=== PATIENT | male | born 1955 | race Caucasian/White ===

== ENCOUNTER 2018-02-05 13:38 | Inpatient (IN) | payer BC ==
[~2018-02-05] VITALS: Ht 172.7 cm; Wt 90.0 kg
[2018-02-05 13:43] VITALS: BP 130/67; PULSE 118; RESP 18; TEMP 97.8; O2SAT 96
[2018-02-05 14:05] VITALS: BP 130/67; PULSE 116; RESP 18; O2SAT 99
[2018-02-05] MEDS ORDERED: ENBR50IN2 SQ (14:15)
[2018-02-05] MEDS ORDERED: PARO20TA2 PO (14:15)
[2018-02-05] MEDS ORDERED: NAPR500T2 PO (14:15)
[2018-02-05] MEDS ORDERED: RILU1TAB2 PO (14:15)
[2018-02-05] MEDS ORDERED: HYOS1TAB9 PO (14:15)
[2018-02-05] MEDS ORDERED: EDAR30PI (14:15)
[2018-02-05] MEDS ORDERED: METR250T23 PO (14:15)
[2018-02-05] MEDS ORDERED: TRAM50TA PO (14:15)
[2018-02-05] MEDS ORDERED: LISI20TA3 PO (14:15)
[2018-02-05] MEDS ORDERED: GINK60TA10 PO (14:15)
[2018-02-05] MEDS ORDERED: FAMO20TA2 PO (14:15)
[2018-02-05] MEDS ORDERED: ZOLP10TA3 PO (14:15)
[2018-02-05] MEDS ORDERED: CYCL10TA PO (14:15)
[2018-02-05] MEDS ORDERED: VIAG100T PO (14:15)
[2018-02-05] MEDS ORDERED: SODIUM CHLORIDE 0.9% FLUSH 10 ML FLUSH IV FLUSH PRN ×2 (14:30→18:15)
[2018-02-05 14:40] VITALS: O2SAT 99
--- NOTE | 2018-02-05 14:40 | PD ---
HPI Chief Complaint: Abdominal Pain Time Seen by Provider: 13:54 Travel History International Travel<30 days: No Contact w/Intl Traveler<30days: No Traveled to known affect area: No History of Present Illness HPI This patient complains of nausea vomiting abdominal pain. Patient has history of ulcerative colitis and colectomy. He has had at least 10 occasions in the past where he developed ileus/small bowel obstruction. All of these are relieved with bowel rest and NG suction. Has not had to have a operative intervention for any of them. He is vacationing from [place]. 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 Duration is 24 hours. He had a normal bowel movement yesterday. No alleviating factors. Symptoms could be exacerbated by adhesions and pain medications. PFSH Past Medical History Autoimmune Disease: Yes (ALS) Hypertension: Yes Past Surgical History Abdominal Surgery: Yes (colon removal and recontruction, colostomy and reversal ) Social History Alcohol Use: Yes Tobacco Use: No Substance Use: No Allergies-Medications (Allergen,Severity, Reaction): Coded Allergies: No Known Allergies (Unverified , 02/05/18) Reported Meds & Prescriptions Reported Meds & Active Scripts Active Reported Lisinopril-Hctz 20-25 Mg Tab 1 Tab PO DAILY Zolpidem (Zolpidem Tartrate) 10 Mg Tab 10 Mg PO HS PRN Famotidine 20 Mg Tab 20 Mg PO HS Naproxen 500 Mg Tab 500 Mg PO BID Riluzole 50 Mg Tab 50 Mg PO BID Flexeril (Cyclobenzaprine HCl) 10 Mg Tab 10 Mg PO TID Tramadol (Tramadol HCl) 50 Mg Tab 50 Mg PO Q8H PRN Metronidazole 250 Mg Tab 250 Mg PO BID Paroxetine (Paroxetine HCl) 20 Mg Tab 20 Mg PO DAILY Ginkgo Biloba (Ginkgo Biloba [place] Extract) 60 Mg Tablet 120 Mg PO Hyoscyamine (Hyoscyamine Sulfate) 0.125 Mg Tab 0.125 Mg PO QID Viagra (Sildenafil Citrate) 100 Mg Tab 100 Mg PO DAILY PRN Enbrel PF Inj (Etanercept) 50 mg/ml Syr 50 Mg SQ Q7D Radicava (Edaravone) 30 Mg/100 Ml Piggyback Review of Systems General / Constitutional: No: Fever Eyes: No: Visual changes HENT: No: Headaches Cardiovascular: No: Chest Pain or Discomfort Respiratory: No: Shortness of Breath Gastrointestinal: Positive: Nausea, Vomiting, Abdominal Pain Genitourinary: No: Dysuria Musculoskeletal: Positive: Weakness, No: Pain Skin: No Rash Neurologic: Positive: Weakness Psychiatric: No: Depression Endocrine: No: Polydipsia Hematologic/Lymphatic: No: Easy Bruising Physical Exam Narrative GENERAL: Well-nourished, well-developed patient with abdominal pain and nausea. SKIN: Focused skin assessment reveals no rash and nodules. Skin is Warm and dry. HEAD: Atraumatic. Normocephalic. EYES: Pupils equal and round. No scleral icterus. No injection or drainage. ENT: No nasal bleeding or discharge. Mucous membranes pink and moist. NECK: Trachea midline. No JVD. CARDIOVASCULAR: Regular rate and rhythm. No murmur appreciated. RESPIRATORY: No accessory muscle use. Clear to auscultation. Breath sounds equal bilaterally. GASTROINTESTINAL: Abdomen has some tenderness and distention. No rebound or guarding. Diminished bowel sounds . Hepatic and splenic margins not palpable. MUSCULOSKELETAL: No obvious deformities. No clubbing. No cyanosis. No edema. NEUROLOGICAL: Awake and alert. No obvious cranial nerve deficits. Motor grossly within normal limits. Normal speech. PSYCHIATRIC: Appropriate mood and affect; insight and judgment normal. Rectal: Normal tone, no impaction Data Data Last Documented VS Vital Signs Date Time Temp Pulse Resp B/P (MAP) Pulse Ox O2 Delivery O2 Flow Rate FiO2 02/05/18 14:05 18 02/05/18 14:05 116 130/67 (88) 99 Room Air 02/05/18 13:43 97.8 Orders Orders Complete Blood Count With Diff (02/05/18 14:16) Comprehensive Metabolic Panel (02/05/18 14:16) Lipase (02/05/18 14:16) Prothrombin Time / Inr (Pt) (02/05/18 14:16) Act Partial Throm Time (Ptt) (02/05/18 14:16) Ct Abd/Pel W Iv Contrast(Rout) (02/05/18 14:16) Iv Access Insert/Monitor (02/05/18 14:16) Ecg Monitoring (02/05/18 14:16) Oximetry (02/05/18 14:16) Sodium Chloride 0.9% Flush (Ns Flush) (02/05/18 14:30) MDM Medical Decision Making Medical Screen Exam Complete: Yes Emergency Medical Condition: Yes Medical Record Reviewed: Yes Differential Diagnosis Obstruction, ileus, adhesions Narrative Course I have reviewed the patient's electronic medical record. Abdominal pain workup is ordered. He likely has some degree of ileus or obstruction. IV placed and labs sent CT of abdomen and pelvis Nausea medicine given and a dose of pain medicine Satya Pastrana MD Feb 05, 2018 14:40
[2018-02-05 14:59] LABS: AUTOMATED NEUTROPHIL # 11.5 TH/MM3 (1.8-7.7); BASOPHIL % 0.1 % (0.0-2.0); HEMATOCRIT 40.6 % (39.0-51.0); HEMOGLOBIN 12.6 GM/DL (13.0-17.0); LYMPH % 5.5 % (9.0-44.0); LYMPHOCYTE # 0.8 TH/MM3 (1.0-4.8); MEAN CELL VOLUME 73.7 FL (80.0-100.0); MEAN CORPUSCULAR HEMOGLOBIN 22.8 PG (27.0-34.0); MEAN CORPUSCULAR HGB CONC 30.9 % (32.0-36.0); MEAN PLATELET VOLUME 8.4 FL (7.0-11.0); MONO % 15.9 % (0.0-8.0); MONOCYTE # 2.3 TH/MM3 (0-0.9); NEUT % 78.5 % (16.0-70.0); PLATELET COUNT 655 TH/MM3 (150-450); RED BLOOD COUNT 5.52 MIL/MM3 (4.50-5.90); WHITE BLOOD COUNT 14.7 TH/MM3 (4.0-11.0)
[2018-02-05 15:11] LABS: INTERNATIONAL NORMALIZED RATIO 1.2 RATIO; PROTHROMBIN TIME - PATIENT 12.4 SEC (9.8-11.6)
[2018-02-05 15:13] LABS: ALBUMIN 4.1 GM/DL (3.4-5.0); ALT (GPT) 27 U/L (12-78); AST (GOT) 20 U/L (15-37); BICARBONATE 29.5 MEQ/L (21.0-32.0); BLOOD UREA NITROGEN 20 MG/DL (7-18); CALCIUM 9.5 MG/DL (8.5-10.1); CHLORIDE 100 MEQ/L (98-107); CREATININE 1.03 MG/DL (0.60-1.30); GLOMERULAR FILTRATION RATE 73 ML/MIN (>89); GLUCOSE,RANDOM 157 MG/DL (74-106); SODIUM (NA) 138 MEQ/L (136-145)
[2018-02-05 15:15] LABS: ALKALINE PHOSPHATASE 45 U/L (45-117); TOTAL BILIRUBIN ADULT 1.8 MG/DL (0.2-1.0); TOTAL PROTEIN 8.1 GM/DL (6.4-8.2)
[2018-02-05] MEDS ORDERED: ONDANSETRON HCL 4 MG/2 ML VIAL IV ONE (15:30)
[2018-02-05] MEDS ORDERED: MORPHINE SULFATE 4 MG/ML INJ IV PUSH ONE (15:30)
[2018-02-05] MEDS ORDERED: IOHEXOL 350 MG/ML 10 ML VIAL (for RAD DIAG) IVCONTRAST ONE (15:44)
--- NOTE | 2018-02-05 15:51 | RADRPT ---
EXAM DATE/TIME: 02/05/2018 15:28 [facility] COMPARISON: No previous studies available for comparison. INDICATIONS : Left lower quadrant pain. Evaluate for obstruction, history of colectomy. IV CONTRAST: 95 cc Omnipaque 350 (iohexol) IV ORAL CONTRAST: Patient refused oral contrast. RADIATION DOSE: 10.64 CTDIvol (mGy) MEDICAL HISTORY : Hypertension. ALS SURGICAL HISTORY : Colectomy ENCOUNTER: Initial ACUITY: 1 week PAIN SCALE: 4/10 LOCATION: Left lower quadrant TECHNIQUE: Volumetric scanning of the abdomen and pelvis was performed. Using automated exposure control and ad justment of the mA and/or kV according to patient size, radiation dose was kept as low as reasonably achievable to obtain optimal diagnostic quality images. DICOM format image data is available electro nically for review and comparison. FINDINGS: LOWER LUNGS: Mild scarring in the lung bases. LIVER: Homogeneous density without lesion. There is no dilation of the biliary tree. No calcified gallston es. SPLEEN: Normal size without lesion. PANCREAS: Within normal limits. KIDNEYS: Normal in size and shape. There is no mass, stone or hydronephrosis. ADRENAL GLANDS: Within normal limits. VASCULAR: There is no aortic aneurysm. BOWEL/MESENTERY: There is fluid within the distal esophagus. Large amount of fluid in the stomach. Markedly distended fluid-filled small bowel throughout the abdomen. There is contrast in the colon. The left colon has b een resected.. ABDOMINAL WALL: Within normal limits. RETROPERITONEUM: There is no lymphadenopathy. BLADDER: No wall thickening or mass. REPRODUCTIVE: Within normal limits. INGUINAL: There is no lymphadenopathy or hernia. MUSCULOSKELETAL: Right hip arthroplasty. CONCLUSION: Markedly distended stomach and small bowel filled with mostly fluid. Status post left hemicolectomy. Uncertain how much colon is left. No definite evidence of bowel obstruction. Solid organs are unremar kable. Nj Ortiz MD on February 05, 2018 at 15:46 Board Certified Radiologist. This report was verified electronically.
[2018-02-05] MEDS ORDERED: SODIUM CHLOR 0.9% 1000 ML INJ 1,000 ML IV ONE (16:15)
[2018-02-05 16:47] LABS: BANDS 6 % (0-6); BASOPHILS 1 % (0-2); LYMPHOCYTES 8 % (9-44); MONOCYTES 15 % (0-8); NEUTROPHIL # MANUAL DIFF 11.2 TH/MM3 (1.8-7.7); OVALOCYTES 1+ (NORMAL); POLYS (SEG NEUTROPHILS) 70 % (16-70)
[2018-02-05 17:00] VITALS: BP 135/77; PULSE 116; RESP 20; O2SAT 99
[2018-02-05] MEDS ORDERED: LIDOCAINE VISCOUS 2% SOLN 15 ML UDC PO ONE (17:15)
--- NOTE | 2018-02-05 17:32 | HHI.HP ---
HPI Service Family Medicine Primary Care Physician No Primary Care Physician Admission Diagnosis ileus, abd pain Diagnoses: International Travel<30 Days: No Contact w/Intl Traveler<30days: No Known Affected Area: No History of Present Illness Patient is a 72-year-old male with past medical history of ALS, UC and prior SBOs (medically managed). He presented to the emergency room today with complaints of diffuse abdominal pain and lower back pain. Abdominal pain began last night accompanied by nausea and vomiting. Patient stated he has vomited more than 10 times, emesis is brownish/green fluid. No blood noted in the emesis. Denies fever, chills, chest pain or shortness of breath. Patient said he had bowel movement yesterday no blood noted to be in the stool. He has not been able to tolerate any p.o. intake today. Review of Systems Constitutional: DENIES: Fever, Chills Respiratory: DENIES: Shortness of breath Cardiovascular: DENIES: Chest pain Gastrointestinal: COMPLAINS OF: Abdominal pain, Diarrhea, Nausea, Vomiting, DENIES: Bloody stools Genitourinary: COMPLAINS OF: Dysuria, DENIES: Urinary frequency (BL- started last night) Musculoskeletal: COMPLAINS OF: Back pain (chronic back issues but intensified last night) Past Family Social History Past Medical History PMHX UC SBO ALS psoriatic arthritis Past Surgical History colon removal and reconstruction, colostomy and reversal), 3 separate surgeries from jul 1999--last 03/2000 hip replacement, Right rotator cuff repair, Left meniscus repair, Right Reported Medications Reported Meds & Active Scripts Active Reported Lisinopril-Hctz 20-25 Mg Tab 1 Tab PO DAILY Zolpidem (Zolpidem Tartrate) 10 Mg Tab 10 Mg PO HS PRN Famotidine 20 Mg Tab 20 Mg PO HS Naproxen 500 Mg Tab 500 Mg PO BID Riluzole 50 Mg Tab 50 Mg PO BID Flexeril (Cyclobenzaprine HCl) 10 Mg Tab 10 Mg PO TID Tramadol (Tramadol HCl) 50 Mg Tab 50 Mg PO Q8H PRN Metronidazole 250 Mg Tab 250 Mg PO BID Paroxetine (Paroxetine HCl) 20 Mg Tab 20 Mg PO DAILY Ginkgo Biloba (Ginkgo Biloba [place] Extract) 60 Mg Tablet 120 Mg PO Hyoscyamine (Hyoscyamine Sulfate) 0.125 Mg Tab 0.125 Mg PO QID Viagra (Sildenafil Citrate) 100 Mg Tab 100 Mg PO DAILY PRN Enbrel PF Inj (Etanercept) 50 mg/ml Syr 50 Mg SQ Q7D Radicava (Edaravone) 30 Mg/100 Ml Piggyback Allergies: Coded Allergies: No Known Allergies (Unverified , 02/05/18) Family History UC- mother and niece DM-father Social History Patient lives in [place] and was visiting in [place] with his . Smoking: quit smoking 30 yrs ago, prior use: 1 pack per day for 10 yrs Alcohol- glass of wine per illicit drug use: medical marijuana at night 1 pill-- for body tremors due to ALS Physical Exam Vital Signs Vital Signs Date Time Temp Pulse Resp B/P (MAP) Pulse Ox O2 Delivery O2 Flow Rate FiO2 02/05/18 17:00 116 20 135/77 (96) 99 Room Air 02/05/18 14:40 99 Room Air 02/05/18 14:05 18 02/05/18 14:05 116 18 130/67 (88) 99 Room Air 02/05/18 13:43 97.8 118 18 130/67 (88) 96 Physical Exam GENERAL: This is a well-nourished, well-developed patient, in distress, SKIN: No rashes, ecchymoses or lesions. Cool and dry. HEAD: Atraumatic. Normocephalic. EYES: Pupils equal round and reactive. Extraocular motions intact. No scleral icterus. No injection or drainage. ENT: NG tube in place with dark green output. NECK: Trachea midline. No JVD or lymphadenopathy. Supple, nontender, no meningeal signs. CARDIOVASCULAR: Normal S1-S2. Regular rate and rhythm without murmurs, gallops , or rubs. RESPIRATORY: Breath sounds equal bilaterally anteriorly. Patient unable to sit up due to worsening of NG tube output and vomiting with movement. GASTROINTESTINAL: Abdomen distended, tenderness to palpation more pronounced at left lower quadrant, No hepato-splenomegaly, or palpable masses. Positive guarding and rebound and left lower quadrant. MUSCULOSKELETAL: Extremities without clubbing, cyanosis, or edema. No joint tenderness, effusion, or edema noted. No calf tenderness. NEUROLOGICAL: Awake and alert. Motor and sensory grossly within normal limits. Five out of 5 muscle strength in all muscle groups. Normal speech. Laboratory Laboratory Tests Test 02/05/18 14:30 White Blood Count 14.7 Red Blood Count 5.52 Hemoglobin 12.6 Hematocrit 40.6 Mean Corpuscular Volume 73.7 Mean Corpuscular Hemoglobin 22.8 Mean Corpuscular Hemoglobin Concent 30.9 Red Cell Distribution Width 17.0 Platelet Count 655 Mean Platelet Volume 8.4 Neutrophils (%) (Auto) 78.5 Lymphocytes (%) (Auto) 5.5 Monocytes (%) (Auto) 15.9 Eosinophils (%) (Auto) 0.0 Basophils (%) (Auto) 0.1 Neutrophils # (Auto) 11.5 Lymphocytes # (Auto) 0.8 Monocytes # (Auto) 2.3 Eosinophils # (Auto) 0.0 Basophils # (Auto) 0.0 CBC Comment AUTO DIFF Differential Total Cells Counted 100 Neutrophils % (Manual) 70 Band Neutrophils % 6 Lymphocytes % 8 Monocytes % 15 Basophils % 1 Neutrophils # (Manual) 11.2 Differential Comment FINAL DIFF MANUAL Platelet Estimate HIGH Platelet Morphology Comment NORMAL Ovalocytes 1+ Prothrombin Time 12.4 Prothromb Time International Ratio 1.2 Activated Partial Thromboplast Time 25.7 Blood Urea Nitrogen 20 Creatinine 1.03 Random Glucose 157 Total Protein 8.1 Albumin 4.1 Calcium Level 9.5 Alkaline Phosphatase 45 Aspartate Amino Transf (AST/SGOT) 20 Alanine Aminotransferase (ALT/SGPT) 27 Total Bilirubin 1.8 Sodium Level 138 Potassium Level 3.9 Chloride Level 100 Carbon Dioxide Level 29.5 Anion Gap 9 Estimat Glomerular Filtration Rate 73 Lipase 57 Result Diagram: 02/05/18 1430 02/05/18 1430 Imaging Last Impressions Abdomen/Pelvis CT 02/05/18 1416 Signed Impressions: Service Date/Time: Monday, February 05, 2018 15:28 - CONCLUSION: Markedly distended stomach and small bowel filled with mostly fluid. Status post left hemicolectomy. Uncertain how much colon is left. No definite evidence of bowel obstruction. Solid organs are unremarkable. MD Chepe Singhi VTE Risk Assessment Caprini VTE Risk Assessment: Mod/High Risk (score >= 2) Caprini Risk Assessment Model Point Value = 1 Point Value = 2 Point Value = 3 Point Value = 5 Age 41-60 Minor surgery BMI > 25 kg/m2 Swollen legs Varicose veins or History of unexplained or recurrent spontaneous Oral contraceptives or hormone replacement Sepsis (< 1 month) Serious lung disease, including pneumonia (< 1 month) Abnormal pulmonary function Acute myocardial infarction Congestive heart failure (< 1 month) History of inflammatory bowel disease Medical patient at bed rest Age 61-74 Arthroscopic surgery Major open surgery (> 45 min) Laparoscopic surgery (> 45 min) Malignancy Confined to bed (> 72 hours) Immobilizing plaster cast Central venous access Age >= 75 History of VTE Family history of VTE Factor V Leiden Prothrombin [id number] Lupus anticoagulant Anticardiolipin antibodies Elevated serum homocysteine Heparin-induced thrombocytopenia Other congenital or acquired thrombophilia Stroke (< 1 month) Elective arthroplasty Hip, pelvis, or leg fracture Acute spinal cord injury (< 1 month) Prophylaxis Regimen Total Risk Factor Score Risk Level Prophylaxis Regimen 0-1 Low Early ambulation 2 Moderate Order ONE of the following: *Sequential Compression Device (SCD) *Heparin 5000 units SQ BID 3-4 Higher Order ONE of the following medications: *Heparin 5000 units SQ TID *Enoxaparin/Lovenox 40 mg SQ daily (WT < 150 kg, CrCl > 30 mL/min) *Enoxaparin/Lovenox 30 mg SQ daily (WT < 150 kg, CrCl > 10-29 mL/min) *Enoxaparin/Lovenox 30 mg SQ BID (WT < 150 kg, CrCl > 30 mL/min) AND/OR *Sequential Compression Device (SCD) 5 or more Highest Order ONE of the following medications: *Heparin 5000 units SQ TID (Preferred with Epidurals) *Enoxaparin/Lovenox 40 mg SQ daily (WT < 150 kg, CrCl > 30 mL/min) *Enoxaparin/Lovenox 30 mg SQ daily (WT < 150 kg, CrCl > 10-29 mL/min) *Enoxaparin/Lovenox 30 mg SQ BID (WT < 150 kg, CrCl > 30 mL/min) AND *Sequential Compression Device (SCD) Assessment and Plan Assessment and Plan Patient is a 72-year-old male with past medical history of ALS, UC and prior SBOs (medically managed) presenting with: Code Status Full code Discussed Condition With Dr. Davidson Problem List: (1) Abdominal pain ICD Codes: R10.9 - Unspecified abdominal pain Status: Acute Plan: Patient with 1 day history of diffuse abdominal pain and prior history of SBO's On admission: Leukocytosis of 14.7, tachycardic 118, afebrile UA: Trace ketones and urine protein 30 CT abdomen pelvis: Markedly distended stomach and small bowel filled with mostly fluid. Patient to be managed medically at the moment for SBO. Continue with NG tube suction, IV fluids, and Toradol IV for pain Consider surgery consult if symptoms worsen or not resolve with medical management Follow-up A.m. labs (2) Small bowel obstruction ICD Codes: K56.609 - Unspecified intestinal obstruction, unspecified as to partial versus complete obstruction Status: Acute Plan: See plan above (3) ALS (amyotrophic lateral sclerosis) ICD Codes: G12.21 - Amyotrophic lateral sclerosis Status: Chronic Plan: Continue with home medications (4) Nutrition, metabolism, and development symptoms ICD Codes: R63.8 - Other symptoms and signs concerning food and fluid intake Plan: Fluids: 120mls/hr Electrolytes: Replete as needed continue to monitor Nutrition: N.p.o. DVT prophylaxis: Lovenox every 24hr Alise Ceballos MD, R1 Feb 05, 2018 17:32
[2018-02-05] MEDS ORDERED: ONDANSETRON HCL 4 MG/2 ML VIAL IVP PRN (18:15)
[2018-02-05] MEDS ORDERED: NALOXONE HCL 0.4 MG/ML AMP IV PUSH PRN (18:15)
[2018-02-05] MEDS ORDERED: KETOROLAC TROMETHAMINE 60 MG/2 ML (IM) VIAL IM ONE (18:15)
[2018-02-05 18:33] VITALS: BP 136/97; PULSE 112; RESP 18; O2SAT 93
[2018-02-05] MEDS ORDERED: KETOROLAC TROMETHAMINE 30 MG/ML (IVP) VIAL IV PUSH ONE (18:45)
[2018-02-05 19:57] LABS: BILIRUBIN, URINE NEG (NEG); BLOOD, URINE NEG (NEG); GLUCOSE,URINE NEG (NEG); KETONE, URINE TRACE mg/dL (NEG); MUCUS URINE FEW /lpf (OCC); NITRITE,URINE NEG (NEG); PH, URINE 6.5 (5.0-8.5); URINE COLOR YELLOW (YELLW/STRAW); URINE LEUKOCYTE ESTERASE NEG (NEG)
[2018-02-05 20:00] VITALS: BP 127/66; PULSE 110; RESP 18; TEMP 98.7; O2SAT 94
[2018-02-05] MEDS: SODIUM CHLOR 0.9% 1000 ML INJ 1,000 ML IV SCH (20:26)
[2018-02-05] MEDS: ENOXAPARIN SODIUM 40 MG/0.4 ML SYRINGE SQ SCH (20:34)
[2018-02-05] MEDS: SODIUM CHLORIDE 0.9% FLUSH 10 ML FLUSH IV FLUSH SCH (20:39)
[2018-02-05] MEDS: KETOROLAC TROMETHAMINE 30 MG/ML (IVP) VIAL IV PUSH SCH (23:43)
[2018-02-06] VITALS: BP 117/68; PULSE 102; RESP 16; TEMP 98.2; O2SAT 94
[2018-02-06] MEDS ORDERED: MORPHINE SULFATE 2 MG/ML SYRINGE IV PUSH PRN ×3 (01:15)
[2018-02-06] MEDS ORDERED: NALOXONE HCL 0.4 MG/ML AMP IV PUSH PRN (01:15)
[2018-02-06] MEDS: SODIUM CHLOR 0.9% 1000 ML INJ 1,000 ML IV SCH (02:01)
[2018-02-06] MEDS: KETOROLAC TROMETHAMINE 30 MG/ML (IVP) VIAL IV PUSH SCH ×4 (05:45→23:57)
[2018-02-06 06:11] LABS: AUTOMATED NEUTROPHIL # 6.8 TH/MM3 (1.8-7.7); BASOPHIL % 0.3 % (0.0-2.0); EOSINOPHIL % 0.1 % (0.0-4.0); HEMATOCRIT 34.8 % (39.0-51.0); HEMOGLOBIN 10.7 GM/DL (13.0-17.0); LYMPH % 7.9 % (9.0-44.0); LYMPHOCYTE # 0.8 TH/MM3 (1.0-4.8); MEAN CELL VOLUME 73.8 FL (80.0-100.0); MEAN CORPUSCULAR HEMOGLOBIN 22.8 PG (27.0-34.0); MEAN CORPUSCULAR HGB CONC 30.9 % (32.0-36.0); MEAN PLATELET VOLUME 8.6 FL (7.0-11.0); MONO % 22.9 % (0.0-8.0); MONOCYTE # 2.3 TH/MM3 (0-0.9); NEUT % 68.8 % (16.0-70.0); PLATELET COUNT 518 TH/MM3 (150-450); RED BLOOD COUNT 4.71 MIL/MM3 (4.50-5.90); RED CELL DISTRIBUTION WIDTH 16.6 % (11.6-17.2); WHITE BLOOD COUNT 9.9 TH/MM3 (4.0-11.0)
[2018-02-06 06:42] LABS: ALBUMIN 3.1 GM/DL (3.4-5.0); AST (GOT) 21 U/L (15-37); BICARBONATE 31.9 MEQ/L (21.0-32.0); BLOOD UREA NITROGEN 22 MG/DL (7-18); CALCIUM 8.6 MG/DL (8.5-10.1); CHLORIDE 101 MEQ/L (98-107); CREATININE 0.92 MG/DL (0.60-1.30); GLOMERULAR FILTRATION RATE 83 ML/MIN (>89); GLUCOSE,RANDOM 117 MG/DL (74-106); SODIUM (NA) 141 MEQ/L (136-145)
[2018-02-06 06:45] LABS: ALKALINE PHOSPHATASE 36 U/L (45-117); ALT (GPT) 17 U/L (12-78); TOTAL PROTEIN 6.6 GM/DL (6.4-8.2)
[2018-02-06] MEDS ORDERED: ENBREL 50 MG SQ SCH (07:30)
[2018-02-06 08:00] VITALS: BP 110/72; PULSE 108; RESP 17; TEMP 98; O2SAT 95
[2018-02-06] MEDS: NS + KCL 40 MEQ INJ 1,000 ML IV SCH ×3 (09:00→23:58)
[2018-02-06] MEDS: SODIUM CHLORIDE 0.9% FLUSH 10 ML FLUSH IV FLUSH SCH ×2 (09:00→19:30)
[2018-02-06 09:20] LABS: OVALOCYTES 1+ (NORMAL); TEARDROP RBCS 1+ (NORMAL)
[2018-02-06] MEDS ORDERED: KETOROLAC TROMETHAMINE 60 MG/2 ML (IM) VIAL IM ONE (10:30)
--- NOTE | 2018-02-06 10:47 | RADRPT ---
EXAM DATE/TIME: 02/06/2018 10:29 [facility] COMPARISON: No previous studies available for comparison. INDICATIONS : Confirm NG tube placement. MEDICAL HISTORY : Hypertension. ALS. SURGICAL HISTORY : None. ENCOUNTER: Subsequent ACUITY: 1 day PAIN SCORE: 0/10 LOCATION: Abdomen. FINDINGS: Right hip arthroplasty is noted. An enteric tube is identified in the distal tip projects at the expe cted location of the distal esophagus, this should be advanced. There are multiple dilated loops of s mall bowel identified. CONCLUSION: Multiple abnormally dilated loops of small bowel are seen as before. Enteric tube as above. Ton Marin MD on February 06, 2018 at 10:44 Board Certified Radiologist. This report was verified electronically.
[2018-02-06 12:00] VITALS: BP 125/72; PULSE 103; RESP 18; TEMP 97.8; O2SAT 94
--- NOTE | 2018-02-06 15:03 | HHI.FPPN ---
Subjective Subjective Patient seen and examined. Case reviewed and discussed Please refer to resident H&P for further details regarding HPI, ROS, PMH, SurgHx , FH and SocHx In summary, patient is a 62yoM with a history of ALS, UC, psoriatic arthritis, multiple SBOs presenting with emesis x 10 and symptoms similar to prior SBO Patient is seen this am reporting that his abdomen is softer and less distended than admission. He thinks he passed flatus this am. NGT with significant output. [facility] Objective Objective Laboratory Tests - Abnormals Test 02/05/18 19:10 02/06/18 05:15 02/06/18 09:48 Urine Specific [place] GREATER THAN 1.050 Urine Protein 30 mg/dL Urine Ketones TRACE mg/dL Urine Mucus FEW /lpf Hemoglobin 10.7 GM/DL Hematocrit 34.8 % Mean Corpuscular Volume 73.8 FL Mean Corpuscular Hemoglobin 22.8 PG Mean Corpuscular Hemoglobin Concent 30.9 % Platelet Count 518 TH/MM3 Lymphocytes (%) (Auto) 7.9 % Monocytes (%) (Auto) 22.9 % Lymphocytes # (Auto) 0.8 TH/MM3 Monocytes # (Auto) 2.3 TH/MM3 Platelet Estimate HIGH Tear Drop Cells 1+ Ovalocytes 1+ Blood Urea Nitrogen 22 MG/DL Random Glucose 117 MG/DL Albumin 3.1 GM/DL Alkaline Phosphatase 36 U/L Potassium Level 3.4 MEQ/L Estimat Glomerular Filtration Rate 83 ML/MIN Vital Signs 02/05/18 02/05/18 02/05/18 02/05/18 17:00 18:33 19:17 19:18 Pulse 116 112 Resp 20 18 16 B/P (MAP) 135/77 (96) 136/97 (110) Pulse Ox 99 93 O2 Delivery Room Air Room Air 02/05/18 02/06/18 02/06/18 02/06/18 20:00 00:00 08:00 11:06 Temp 98.7 98.2 98.0 Pulse 110 102 108 Resp 18 16 17 B/P (MAP) 127/66 (86) 117/68 (84) 110/72 (85) Pulse Ox 94 94 95 02/06/18 02/06/18 12:00 14:29 Temp 97.8 Pulse 103 Resp 18 B/P (MAP) 125/72 (89) Pulse Ox 94 Physical exam GENERAL: pleasant wdwn male, sitting up in bed. NGT in place. Awake and alert. SKIN: Warm and dry. No rashes. HEAD: Normocephalic. AT EYES: No scleral icterus. No injection or drainage. ENT: NG As above. NECK: Supple, trachea midline. No JVD or lymphadenopathy. CARDIOVASCULAR: Regular rate and rhythm without audible murmurs, gallops, or rubs. RESPIRATORY: Breath sounds equal and clear bilaterally. No accessory muscle use. GASTROINTESTINAL: Abdomen soft, minimal diffuse tenderness, mildly distended. BS slightly high-pitched but active. MUSCULOSKELETAL: No cyanosis, or edema. LE weakness chronic from ALS BACK: Nontender without obvious deformity. No CVA tenderness. Assessment Assessment 62yoM admitted with: SBO Intractable emesis Leukocytosis UC s/p hemicolectomy SBO x 4 in past ALS psoriatic arthritis HTN Depression Insomnia PLAN PLAN NPO NGT to suction Post placement XR Follow clinically GS consult appreciate recs Resume home meds once able to take PO Monitor VS (blood pressure) Pain control PT/OT consult Patient seen and examined. Case reviewed and discussed Agree with plan of care as discussed with me and documented in the resident note. Julia Vences MD Feb 06, 2018 15:03
--- NOTE | 2018-02-06 15:38 | MB ---
cc: Nick Leigh MD DATE: 02/06/2018 REASON FOR CONSULTATION: Partial bowel obstruction. HISTORY OF PRESENT ILLNESS: The patient is a 72-year-old male with multiple medical issues including ALS, ulcerative colitis, history of multiple SBOs x 12. The patient has history of total colectomy and J pouch creation, presents with acute onset of abdominal pain. The patient states the pain started approximately 24 hours ago. He had multiple episodes of nausea, vomiting x 10. Did note 1 bowel movement yesterday. He states the pain is around his umbilicus and somewhat diffuse. He said the pain is a 7/10, it is achy, it is worse with movement, better with lying still. The patient came to the emergency department for further evaluation including CT scan showing multiple dilated small bowel loops and a dilated stomach as well. NG tube was placed with 3.5 L removed. The patient does state some improvement following this placement. On further exam, patient notes he is followed by colorectal surgeon, Dr. Dietz in [place] and states he has had multiple episodes of small bowel obstructions including the last approximately 1 year ago. All obstructions have been treated medically and the patient has improved and was doing well until this recent event. The patient further denies fevers or chills or any blood in his bowel movement. PAST MEDICAL HISTORY: Ulcerative colitis, bowel obstructions, ALS, psoriatic arthritis. PAST SURGICAL HISTORY: Total colectomy with a J-pouch creation in 1999, hip replacement on the right, rotator cuff repair on the left, right meniscus repair. MEDICATIONS: See electronic medical record. SOCIAL HISTORY: Denies smoking. Occasional ETOH. Denies IVDA. Marijuana use 1 pill at night. FAMILY HISTORY: Denies diabetes or hypertension. ALLERGIES: NO KNOWN DRUG ALLERGIES. REVIEW OF SYSTEMS: GENERAL: Denies fevers or chills. HEENT: Denies eye pain or ear pain. NECK: Denies swelling or pain. LUNGS: Denies cough or wheeze. HEART: Denies palpitations or chest pain. ABDOMEN: Complains of nausea, vomiting, and abdominal pain. GENITOURINARY: Denies dysuria or hematuria. ENDOCRINE: Denies polyuria or polydipsia. INTEGUMENT: Denies masses or lesions. NEUROLOGIC: Denies numbness or tingling. PHYSICAL EXAMINATION: GENERAL: No acute distress. VITAL SIGNS: Temperature 97.8, pulse 116, respirations 18, blood pressure 130/67, saturation 96%. HEENT: Pupils equal, round, and reactive to light. Mucous membranes dry. NECK: Supple. Trachea midline. LUNGS: Clear to auscultation. HEART: S1, S2. Regular. ABDOMEN: Soft, mild distention, mild tenderness to palpation. No rebound, no guarding. EXTREMITIES: Warm and well perfused. NEUROLOGIC: 5/5 motor all extremities. GCS of 15. PSYCHIATRIC: Appropriate mood, appropriate insight. LABORATORY AND DIAGNOSTIC DATA: WBC 9.9, hemoglobin 10.7, hematocrit 34.8, platelets 518. Sodium 141, potassium 3.4, chloride 101, BUN 22, creatinine 0.9, bilirubin 1, lipase 57. INR is 1.2. CT reviewed by myself showing markedly dilated stomach and small bowel proximal with a decompressed distal small bowel. No evidence of colon and evidence of J-pouch with equalization. ASSESSMENT AND PLAN: The patient is a 62-year-old male with history of ulcerative colitis, status post total abdominal colectomy, history of multiple small bowel obstructions treated medically who represents with a recurrent bout of small-bowel obstruction. After full radiological workup, patient with above main issues including recurrent bowel obstruction. The patient currently has NG tube in place. Agree with this. Continue low intermittent suction. The patient is okay to have ice chips, otherwise needs to be n.p.o., IV fluids, pain control. Check and correct any electrolytes. We will followup on abdominal x-ray. The patient may benefit from small bowel follow through, pending course. We will attempt nonoperative management. If surgery is required, the patient requests discussion with Dr. Dietz in [place] regarding further details of previous admissions and surgical history. MD YANA Anaya/MEHDI , 03:07 PM , 03:36 PM
[2018-02-06 16:00] VITALS: BP 117/65; PULSE 98; RESP 16; TEMP 98.2; O2SAT 92
[2018-02-06] MEDS: ARTIFICIAL TEARS OPTH SOLN 15 ML BTL EACH EYE PRN (17:00)
[2018-02-06 19:03] LABS: ALBUMIN 3.2 GM/DL (3.4-5.0); ALT (GPT) 18 U/L (12-78); AST (GOT) 16 U/L (15-37); BICARBONATE 34.5 MEQ/L (21.0-32.0); BLOOD UREA NITROGEN 28 MG/DL (7-18); CALCIUM 8.6 MG/DL (8.5-10.1); CHLORIDE 102 MEQ/L (98-107); CREATININE 1.03 MG/DL (0.60-1.30); GLOMERULAR FILTRATION RATE 73 ML/MIN (>89); GLUCOSE,RANDOM 114 MG/DL (74-106); SODIUM (NA) 144 MEQ/L (136-145)
[2018-02-06 19:05] LABS: ALKALINE PHOSPHATASE 38 U/L (45-117); TOTAL BILIRUBIN ADULT 0.8 MG/DL (0.2-1.0); TOTAL PROTEIN 6.8 GM/DL (6.4-8.2)
[2018-02-06] MEDS: ENOXAPARIN SODIUM 40 MG/0.4 ML SYRINGE SQ SCH (19:30)
[2018-02-06 20:00] VITALS: BP 146/73; PULSE 105; RESP 20; TEMP 97.2; O2SAT 94
[2018-02-07] VITALS: BP 121/57; PULSE 94; RESP 18; TEMP 98; O2SAT 98
[2018-02-07 05:40] LABS: AUTOMATED NEUTROPHIL # 3.6 TH/MM3 (1.8-7.7); BASOPHIL % 0.7 % (0.0-2.0); EOSINOPHIL % 0.5 % (0.0-4.0); HEMATOCRIT 32.5 % (39.0-51.0); HEMOGLOBIN 10.2 GM/DL (13.0-17.0); LYMPH % 9.6 % (9.0-44.0); LYMPHOCYTE # 0.6 TH/MM3 (1.0-4.8); MEAN CELL VOLUME 74.1 FL (80.0-100.0); MEAN CORPUSCULAR HEMOGLOBIN 23.2 PG (27.0-34.0); MEAN CORPUSCULAR HGB CONC 31.3 % (32.0-36.0); MEAN PLATELET VOLUME 8.2 FL (7.0-11.0); MONO % 27.8 % (0.0-8.0); MONOCYTE # 1.6 TH/MM3 (0-0.9); NEUT % 61.4 % (16.0-70.0); PLATELET COUNT 495 TH/MM3 (150-450); RED BLOOD COUNT 4.38 MIL/MM3 (4.50-5.90); RED CELL DISTRIBUTION WIDTH 16.8 % (11.6-17.2); WHITE BLOOD COUNT 5.9 TH/MM3 (4.0-11.0)
[2018-02-07] MEDS: KETOROLAC TROMETHAMINE 30 MG/ML (IVP) VIAL IV PUSH SCH ×3 (05:45→17:23)
[2018-02-07 06:04] LABS: ALBUMIN 3.1 GM/DL (3.4-5.0); AST (GOT) 20 U/L (15-37); BICARBONATE 34.1 MEQ/L (21.0-32.0); BLOOD UREA NITROGEN 30 MG/DL (7-18); CALCIUM 8.7 MG/DL (8.5-10.1); CHLORIDE 103 MEQ/L (98-107); GLOMERULAR FILTRATION RATE 76 ML/MIN (>89); GLUCOSE,RANDOM 115 MG/DL (74-106); SODIUM (NA) 145 MEQ/L (136-145)
[2018-02-07 06:05] LABS: ALT (GPT) 17 U/L (12-78)
[2018-02-07 06:07] LABS: ALKALINE PHOSPHATASE 34 U/L (45-117); TOTAL BILIRUBIN ADULT 0.7 MG/DL (0.2-1.0); TOTAL PROTEIN 6.6 GM/DL (6.4-8.2)
[2018-02-07 08:00] VITALS: BP 130/71; PULSE 92; RESP 18; TEMP 97.9; O2SAT 93
[2018-02-07] MEDS: NS + KCL 40 MEQ INJ 1,000 ML IV SCH ×2 (09:00→15:07)
[2018-02-07] MEDS: SODIUM CHLORIDE 0.9% FLUSH 10 ML FLUSH IV FLUSH SCH ×2 (09:00→21:00)
--- NOTE | 2018-02-07 10:50 | HHI.FPPN ---
Subjective Remarks No acute events overnight. This morning nausea is markedly improved. No belly pain. Had 3 BMs. Passing gas. No CP/SOB. (Patrick Davidson MD R2) Objective Vitals Vital Signs Date Time Temp Pulse Resp B/P (MAP) Pulse Ox O2 Delivery O2 Flow Rate FiO2 02/07/18 00:57 18 02/07/18 00:00 98.0 94 18 121/57 (78) 98 02/06/18 20:00 97.2 105 20 146/73 (97) 94 02/06/18 18:12 02/06/18 16:00 98.2 98 16 117/65 (82) 92 02/06/18 14:29 02/06/18 12:00 97.8 103 18 125/72 (89) 94 02/06/18 11:06 I/O 02/06/18 02/06/18 02/06/18 02/07/18 02/07/18 02/07/18 07:00 15:00 23:00 07:00 15:00 23:00 Intake Total 1250 ml 1800 ml Output Total 2900 ml 4175 ml 1600 ml Balance -2900 ml -2925 ml 200 ml Intake Oral 0 ml 800 ml IV Total 1250 ml 1000 ml Output Urine Total 600 ml 175 ml 600 ml Gastric Drainage Total 2300 ml 4000 ml 1000 ml # Bowel Movements 1 1 (Patrick Davidson MD R2) Result Diagram: 02/07/18 0400 02/07/18 0440 Imaging Last Impressions Abdomen X-Ray 02/06/18 0848 Signed Impressions: Service Date/Time: Tuesday, February 06, 2018 10:29 - CONCLUSION: Multiple abnormally dilated loops of small bowel are seen as before. Enteric tube as above. Ton Marin MD Abdomen/Pelvis CT 02/05/18 1416 Signed Impressions: Service Date/Time: Monday, February 05, 2018 15:28 - CONCLUSION: Markedly distended stomach and small bowel filled with mostly fluid. Status post left hemicolectomy. Uncertain how much colon is left. No definite evidence of bowel obstruction. Solid organs are unremarkable. Nj Ortiz MD Objective Remarks GEN: WDWN adult white male sitting up in chair, NAD. NG tube to LIWS. Skin: Cool and dry CV: NRRR, normal S1/S2, no MRG Lungs: CTAB, no crackles or wheezes Abd: Soft, NDNT. Bowel sounds active, slightly high pitched but improved from previously MSK: Trace edema to BLE. Neuro: Awake, alert. Moves all extremities without difficulty. Normal speech. Medications and IVs Current Medications Medications (Trade) Dose Ordered Sig/Bruno Route Start Time Stop Time Status Last Admin (NS Flush) 2 ml UNSCH PRN IV FLUSH 02/05/18 18:15 (NS Flush) 2 ml BID IV FLUSH 02/05/18 21:00 02/06/18 09:00 (Zofran Inj) 4 mg Q6H PRN IVP 02/05/18 18:15 02/06/18 05:45 (Lovenox Inj) 40 mg Q24H SQ 02/05/18 21:00 02/06/18 19:30 (Narcan Inj) 0.4 mg UNSCH PRN IV PUSH 02/05/18 18:15 (Toradol Inj) 30 mg Q6HR IV PUSH 02/06/18 00:00 02/10/18 00:00 02/07/18 05:45 (Morphine Inj) 1 mg Q3H PRN IV PUSH 02/06/18 01:15 (Morphine Inj) 2 mg Q3H PRN IV PUSH 02/06/18 01:15 02/06/18 01:50 (Morphine Inj) 2 mg Q3H PRN IV PUSH 02/06/18 01:15 Patient Own Medication PT OWN MED: ENBREL (ETANERCE... Q7D SQ 02/06/18 07:30 Future Hold Potassium Chloride/Sodium Chloride 1,000 ml @ 125 mls/hr Q8H IV 02/06/18 09:00 02/06/18 23:58 (Tears Naturale Opth Soln) 1 drop QID PRN EACH EYE 02/06/18 13:30 02/06/18 17:00 (Patrick Davidson MD R2) A/P Assessment and Plan Patient is a 72-year-old male with past medical history of ALS, UC and prior SBOs (medically managed) presenting with: (Patrick Davidson MD R2) Attending Attestation Patient seen and examined. Case reviewed and discussed Agree with plan of care as discussed with me and documented in the resident note. (Julia Vences MD) Problem List: (1) Abdominal pain ICD Codes: R10.9 - Unspecified abdominal pain Status: Resolved Plan: Secondary to SBO. Improving clinically, though NG tube output high last 24 hours (5L) Patient to be managed medically at the moment for SBO Surgery consulted, appreciate recs -Continue with NG tube suction, IV fluids If ok per surgery diet can be advanced to clears today Toradol IV PRN for pain (2) Small bowel obstruction ICD Codes: K56.609 - Unspecified intestinal obstruction, unspecified as to partial versus complete obstruction Status: Acute Plan: See plan above (3) ALS (amyotrophic lateral sclerosis) ICD Codes: G12.21 - Amyotrophic lateral sclerosis Status: Chronic Plan: Continue with home medications (4) COLD (chronic obstructive lung disease) ICD Codes: J44.9 - Chronic obstructive pulmonary disease, unspecified Plan: Reports history of asthma on Advair -Advair or symbicort BID (depending on formulary in hospital) (5) Nutrition, metabolism, and development symptoms ICD Codes: R63.8 - Other symptoms and signs concerning food and fluid intake Plan: Fluids: 120mls/hr Electrolytes: Replete as needed continue to monitor Nutrition: N.p.o. DVT prophylaxis: Lovenox every 24hr Sleep: Ambien or IM benadryl if NPO (Patrick Davidson MD R2) Patrick Davidson MD R2 Feb 07, 2018 10:50 Julia Vences MD Feb 08, 2018 10:53
--- NOTE | 2018-02-07 10:53 | RADRPT ---
EXAM DATE/TIME: 02/07/2018 10:40 [place] COMPARISON: ABDOMEN FLAT & UPRIGHT, February 06, 2018, 10:29. INDICATIONS : Evaluate for obstruction MEDICAL HISTORY : Hypertension. ALS. SURGICAL HISTORY : None. ENCOUNTER: Subsequent ACUITY: 2 days PAIN SCORE: 0/10 LOCATION: Abdomen FINDINGS: Enteric tube coiled in the stomach. Multiple dilated loops of small bowel are seen throughout the abd omen. Right hip arthroplasty. CONCLUSION: Persistent abnormal dilated small bowel loops. Ton Marin MD on February 07, 2018 at 10:50 Board Certified Radiologist. This report was verified electronically.
[2018-02-07 12:43] VITALS: BP 128/67; PULSE 91; RESP 18; TEMP 97.3; O2SAT 95
--- NOTE | 2018-02-07 13:01 | OTSOAPIP ---
TIME SESSION COMPLETED: 1130 TREATMENT TIME: 0 MINS. CHART REVIEWED. PATIENT SLEEPING, MET WITH PATIENTS WHO REPORTS VISITING FROM [place]. REVIEWED OCCUPATIONAL THERAPY AND INTERVENTION FOR AMYOTROPHIC LATERAL SCLEROSIS DEPENDENT ON LEVEL OF FUNCTION. SHE HAS CURRENTLY RENTED A POWER WHEELCHAIR AND HAS A MANUAL WHEELCHAIR. REVIEWED SUPPORT OPTIONS AND MULTIPLE EQUIPMENT OPTIONS AVAILABLE PATIENT PROGRESES. AT THIS TIME SHE DOES NOT FEEL THAT OCCUPATIONAL THERAPY IS INDICATED. _X_ PT WAS INSTRUCTED TO NOT GET OUT OF BED OR CHAIR WITHOUT ASSISTANCE. CALL [facility] WAS LEFT WITHIN REACH. INTERDISCIPLINARY COMMUNICATION:REVIEWED WITH PATIENTS Therapist: Antoinette Montero OTR/L Signature on file
--- NOTE | 2018-02-07 15:22 | HHI.PR ---
Subjective Subjective Notes feels better, +BM X4 Objective Vitals/I&O Vital Signs Date Time Temp Pulse Resp B/P (MAP) Pulse Ox O2 Delivery O2 Flow Rate FiO2 02/07/18 15:09 02/07/18 12:43 97.3 91 18 95 02/05/18 18:33 Room Air Labs Laboratory Tests Test 02/06/18 17:43 02/07/18 04:00 02/07/18 04:40 Blood Urea Nitrogen 28 30 Creatinine 1.03 1.00 Random Glucose 114 115 Total Protein 6.8 6.6 Albumin 3.2 3.1 Calcium Level 8.6 8.7 Alkaline Phosphatase 38 34 Aspartate Amino Transf (AST/SGOT) 16 20 Alanine Aminotransferase (ALT/SGPT) 18 17 Total Bilirubin 0.8 0.7 Sodium Level 144 145 Potassium Level 3.7 3.7 Chloride Level 102 103 Carbon Dioxide Level 34.5 34.1 Anion Gap 8 8 Estimat Glomerular Filtration Rate 73 76 White Blood Count 5.9 Red Blood Count 4.38 Hemoglobin 10.2 Hematocrit 32.5 Mean Corpuscular Volume 74.1 Mean Corpuscular Hemoglobin 23.2 Mean Corpuscular Hemoglobin Concent 31.3 Red Cell Distribution Width 16.8 Platelet Count 495 Mean Platelet Volume 8.2 Neutrophils (%) (Auto) 61.4 Lymphocytes (%) (Auto) 9.6 Monocytes (%) (Auto) 27.8 Eosinophils (%) (Auto) 0.5 Basophils (%) (Auto) 0.7 Neutrophils # (Auto) 3.6 Lymphocytes # (Auto) 0.6 Monocytes # (Auto) 1.6 Eosinophils # (Auto) 0.0 Basophils # (Auto) 0.0 CBC Comment DIFF FINAL Differential Comment Cardiovascular: Regular Lungs: Clear Abdomen: Non-distended, Non-tender Extremities: No edema, Perfused A/P Assessment and Plan 62yo male with adhesive SBO, resolving. clamp NG clears will follow Leonardo Forbes MD Feb 07, 2018 15:21
[2018-02-07 16:00] VITALS: BP 120/85; PULSE 90; RESP 19; TEMP 97.1; O2SAT 96
[2018-02-07] MEDS: CYCLOBENZAPRINE HCL 10 MG TAB PO SCH (17:22)
[2018-02-07 20:00] VITALS: BP 157/73; PULSE 81; RESP 16; TEMP 98.4; O2SAT 95
[2018-02-07] MEDS: FAMOTIDINE 20 MG TAB PO SCH (21:44)
[2018-02-07] MEDS: BUDESONIDE-FORMOTEROL 160/4.5 MCG INHALER INH SCH (21:44)
[2018-02-07] MEDS: ENOXAPARIN SODIUM 40 MG/0.4 ML SYRINGE SQ SCH (21:44)
[2018-02-07] MEDS: ZOLPIDEM TARTRATE 10 MG TAB PO PRN (21:46)
[2018-02-08] VITALS: BP 129/70; PULSE 92; RESP 16; TEMP 98.6; O2SAT 95
[2018-02-08] MEDS: NS + KCL 40 MEQ INJ 1,000 ML IV SCH ×4 (00:02→21:11)
[2018-02-08] MEDS: KETOROLAC TROMETHAMINE 30 MG/ML (IVP) VIAL IV PUSH SCH ×5 (05:27→23:55)
[2018-02-08 08:00] VITALS: BP 130/65; PULSE 90; RESP 18; TEMP 98.3; O2SAT 95
[2018-02-08 08:19] LABS: BICARBONATE 27.7 MEQ/L (21.0-32.0); CALCIUM 8.5 MG/DL (8.5-10.1); CREATININE 0.9 MG/DL (0.60-1.30)
[2018-02-08] MEDS: SODIUM CHLORIDE 0.9% FLUSH 10 ML FLUSH IV FLUSH SCH ×2 (09:00→21:00)
[2018-02-08] MEDS: CYCLOBENZAPRINE HCL 10 MG TAB PO SCH ×3 (09:14→18:07)
[2018-02-08] MEDS: PARoxetine HCL 20 MG TAB PO SCH (09:14)
[2018-02-08] MEDS: BUDESONIDE-FORMOTEROL 160/4.5 MCG INHALER INH SCH ×2 (09:15→21:12)
--- NOTE | 2018-02-08 10:16 | HHI.FPPN ---
Subjective Remarks No acute events overnight. Tolerated clears well. Objective Vitals Vital Signs Date Time Temp Pulse Resp B/P (MAP) Pulse Ox O2 Delivery O2 Flow Rate FiO2 02/08/18 08:00 98.3 90 18 130/65 (86) 95 02/08/18 06:27 18 02/08/18 00:00 98.6 92 16 129/70 (89) 95 02/07/18 20:00 98.4 81 16 157/73 (101) 95 02/07/18 18:32 02/07/18 16:00 97.1 90 19 120/85 (97) 96 02/07/18 15:09 02/07/18 12:43 97.3 91 18 128/67 (87) 95 I/O 02/07/18 02/07/18 02/07/18 02/08/18 02/08/18 02/08/18 07:00 15:00 23:00 07:00 15:00 23:00 Intake Total 1800 ml 1580 ml 1650 ml Output Total 1600 ml 500 ml 500 ml Balance 200 ml 1080 ml 1150 ml Intake Oral 800 ml 330 ml 650 ml IV Total 1000 ml 1250 ml 1000 ml Output Urine Total 600 ml 500 ml 500 ml Gastric Drainage Total 1000 ml # Bowel Movements 1 3 2 Result Diagram: 02/07/18 0400 02/08/18 0738 Imaging Last Impressions Abdomen X-Ray 02/07/18 0800 Signed Impressions: Service Date/Time: Wednesday, February 07, 2018 10:40 - CONCLUSION: Persistent abnormal dilated small bowel loops. Ton Marin MD Abdomen/Pelvis CT 02/05/18 1416 Signed Impressions: Service Date/Time: Monday, February 05, 2018 15:28 - CONCLUSION: Markedly distended stomach and small bowel filled with mostly fluid. Status post left hemicolectomy. Uncertain how much colon is left. No definite evidence of bowel obstruction. Solid organs are unremarkable. Nj Ortiz MD Objective Remarks GEN: WDWN adult white male sitting up in chair, NAD. NG tube to LIWS. Skin: Cool and dry CV: NRRR, normal S1/S2, no MRG Lungs: CTAB, no crackles or wheezes Abd: Soft, NDNT. Bowel sounds active, high pitched, improved from previously MSK: Trace edema to BLE. Neuro: Awake, alert. Moves all extremities without difficulty. Normal speech. Medications and IVs Current Medications Medications (Trade) Dose Ordered Sig/Bruno Route Start Time Stop Time Status Last Admin (NS Flush) 2 ml UNSCH PRN IV FLUSH 02/05/18 18:15 (NS Flush) 2 ml BID IV FLUSH 02/05/18 21:00 02/06/18 09:00 (Zofran Inj) 4 mg Q6H PRN IVP 02/05/18 18:15 02/06/18 05:45 (Lovenox Inj) 40 mg Q24H SQ 02/05/18 21:00 02/07/18 21:44 (Narcan Inj) 0.4 mg UNSCH PRN IV PUSH 02/05/18 18:15 (Toradol Inj) 30 mg Q6HR IV PUSH 02/06/18 00:00 02/10/18 00:00 02/08/18 05:27 (Morphine Inj) 1 mg Q3H PRN IV PUSH 02/06/18 01:15 (Morphine Inj) 2 mg Q3H PRN IV PUSH 02/06/18 01:15 02/06/18 01:50 (Morphine Inj) 2 mg Q3H PRN IV PUSH 02/06/18 01:15 Patient Own Medication PT OWN MED: ENBREL (ETANERCE... Q7D SQ 02/06/18 07:30 Future hold Potassium Chloride/Sodium Chloride 1,000 ml @ 125 mls/hr Q8H IV 02/06/18 09:00 02/08/18 00:02 (Tears Naturale Opth Soln) 1 drop QID PRN EACH EYE 02/06/18 13:30 02/06/18 17:00 (Symbicort 160-4.5 Mcg Inh) 1 puff Q12HR INH 02/07/18 21:00 02/08/18 09:15 (Flexeril) 10 mg TID PO 02/07/18 18:00 02/08/18 13:22 (Pepcid) 20 mg HS PO 02/07/18 21:00 02/07/18 21:44 (Paxil) 20 mg DAILY PO 02/08/18 09:00 02/08/18 09:14 (Ambien) 10 mg HS PRN PO 02/07/18 15:45 02/07/18 21:46 Patient Own Medication PT OWN MED: RILU... BID PO 02/08/18 15:30 A/P Assessment and Plan Patient is a 72-year-old male with past medical history of ALS, UC and prior SBOs (medically managed) presenting with: Problem List: (1) Abdominal pain ICD Codes: R10.9 - Unspecified abdominal pain Status: Resolved Plan: Secondary to SBO. Improving clinically. On clears. Patient to be managed medically at the moment for SBO Surgery consulted, appreciate recs -Advance diet as tolerated Toradol IV PRN for pain (2) Small bowel obstruction ICD Codes: K56.609 - Unspecified intestinal obstruction, unspecified as to partial versus complete obstruction Status: Acute Plan: See plan above (3) ALS (amyotrophic lateral sclerosis) ICD Codes: G12.21 - Amyotrophic lateral sclerosis Status: Chronic Plan: Continue with home medications (4) COLD (chronic obstructive lung disease) ICD Codes: J44.9 - Chronic obstructive pulmonary disease, unspecified Plan: Reports history of asthma on Advair -Advair or symbicort BID (depending on formulary in hospital) (5) Nutrition, metabolism, and development symptoms ICD Codes: R63.8 - Other symptoms and signs concerning food and fluid intake Plan: Fluids: 120mls/hr Electrolytes: Replete as needed continue to monitor Nutrition: Full liquid, advance as tolerated DVT prophylaxis: Lovenox every 24hr Sleep: Ambien or IM benadryl if NPO Patrick Davidson MD R2 Feb 08, 2018 10:16
[2018-02-08 12:00] VITALS: BP 125/62; PULSE 90; RESP 18; TEMP 98.5; O2SAT 97
--- NOTE | 2018-02-08 12:05 | HHI.PR ---
cc: Nick Leigh MD Subjective Subjective Notes Resting in chair Objective Vitals/I&O Vital Signs Date Time Temp Pulse Resp B/P (MAP) Pulse Ox O2 Delivery O2 Flow Rate FiO2 02/08/18 08:00 98.3 90 18 130/65 (86) 95 02/05/18 18:33 Room Air Labs Laboratory Tests Test 02/08/18 07:38 Blood Urea Nitrogen 25 Creatinine 0.90 Random Glucose 105 Calcium Level 8.5 Sodium Level 141 Potassium Level 4.3 Chloride Level 106 Carbon Dioxide Level 27.7 Anion Gap 7 Estimat Glomerular Filtration Rate 86 Cardiovascular: Regular Lungs: Clear Abdomen: Non-distended, Non-tender Extremities: No edema Narrative Exam NGT to LIWS---removed during visit A/P Assessment and Plan 62 year old male with SBO; resolving -Tolerated NGT clamp and clears -DC NGT (done at bedside) -Advance to fulls -SBO seems to be resolving without surgery Madelyn Loya/Executive Business Coach [employer] OPERATOR Feb 08, 2018 12:05
[2018-02-08 16:00] VITALS: BP 126/77; PULSE 98; RESP 18; TEMP 99; O2SAT 95
[2018-02-08] MEDS: RILUTEK 50 MG PO SCH ×2 (16:23→21:12)
[2018-02-08 20:00] VITALS: BP 121/65; PULSE 86; RESP 17; TEMP 98.5; O2SAT 97
[2018-02-08] MEDS ORDERED: MORPHINE SULFATE 4 MG/ML INJ IV PUSH PRN ×3 (20:30)
[2018-02-08] MEDS: ENOXAPARIN SODIUM 40 MG/0.4 ML SYRINGE SQ SCH (21:12)
[2018-02-08] MEDS: FAMOTIDINE 20 MG TAB PO SCH (21:12)
[2018-02-08] MEDS: ZOLPIDEM TARTRATE 10 MG TAB PO PRN (21:21)
[2018-02-09] VITALS: BP 111/62; PULSE 89; RESP 17; TEMP 98; O2SAT 94
[2018-02-09] MEDS: ARTIFICIAL TEARS OPTH SOLN 15 ML BTL EACH EYE PRN (03:31)
[2018-02-09 03:52] LABS: HEMATOCRIT 32.9 % (39.0-51.0); HEMOGLOBIN 10.2 GM/DL (13.0-17.0); MEAN CELL VOLUME 74.4 FL (80.0-100.0); MEAN CORPUSCULAR HEMOGLOBIN 23.1 PG (27.0-34.0); MEAN CORPUSCULAR HGB CONC 31.1 % (32.0-36.0); MEAN PLATELET VOLUME 8.2 FL (7.0-11.0); PLATELET COUNT 456 TH/MM3 (150-450); RED BLOOD COUNT 4.42 MIL/MM3 (4.50-5.90); WHITE BLOOD COUNT 8.3 TH/MM3 (4.0-11.0)
[2018-02-09 04:20] LABS: BICARBONATE 23.7 MEQ/L (21.0-32.0); CALCIUM 8.6 MG/DL (8.5-10.1); CREATININE 0.97 MG/DL (0.60-1.30)
[2018-02-09] MEDS: KETOROLAC TROMETHAMINE 30 MG/ML (IVP) VIAL IV PUSH SCH ×4 (05:14→15:19)
[2018-02-09 08:00] VITALS: BP 97/53; PULSE 75; RESP 18; TEMP 97.8; O2SAT 97
--- NOTE | 2018-02-09 08:36 | HHI.PR ---
cc: Nick Leigh MD Subjective Subjective Notes Resting in bed Doing well No issues overnight Had multiple BMs yesterday Hungry Objective Vitals/I&O Vital Signs Date Time Temp Pulse Resp B/P (MAP) Pulse Ox O2 Delivery O2 Flow Rate FiO2 02/09/18 08:00 97.8 75 18 97/53 (68) 97 02/05/18 18:33 Room Air Labs Laboratory Tests Test 02/09/18 03:20 02/09/18 03:26 White Blood Count 8.3 Red Blood Count 4.42 Hemoglobin 10.2 Hematocrit 32.9 Mean Corpuscular Volume 74.4 Mean Corpuscular Hemoglobin 23.1 Mean Corpuscular Hemoglobin Concent 31.1 Red Cell Distribution Width 17.0 Platelet Count 456 Mean Platelet Volume 8.2 Blood Urea Nitrogen 17 Creatinine 0.97 Random Glucose 83 Calcium Level 8.6 Sodium Level 140 Potassium Level 4.6 Chloride Level 110 Carbon Dioxide Level 23.7 Anion Gap 6 Estimat Glomerular Filtration Rate 78 Cardiovascular: Regular Lungs: Clear Abdomen: Non-distended, Non-tender Extremities: No edema A/P Assessment and Plan 62 year old male with SBO; resolving -Tolerated full liquids; advance to soft diet -OOB and mobilize as tolerated -SBO seems to be resolving without surgery Madelyn LoyaP/Registered Massage Therapist [employer] DECORATING MACHINE OPERATOR February 09, 2018 08:36
[2018-02-09] MEDS: CYCLOBENZAPRINE HCL 10 MG TAB PO SCH ×3 (08:54→15:17)
[2018-02-09] MEDS: PARoxetine HCL 20 MG TAB PO SCH (08:55)
[2018-02-09] MEDS: RILUTEK 50 MG PO SCH (08:58)
[2018-02-09] MEDS: SODIUM CHLORIDE 0.9% FLUSH 10 ML FLUSH IV FLUSH SCH (09:00)
[2018-02-09] MEDS: BUDESONIDE-FORMOTEROL 160/4.5 MCG INHALER INH SCH (09:01)
--- NOTE | 2018-02-09 11:20 | HHI.FPPN ---
Subjective Remarks No acute events overnight. Feels well today. Tolerated full liquids without N/V or abdominal pain. Passing gas and having BM. No CP/SOB. Objective Vitals Vital Signs Date Time Temp Pulse Resp B/P (MAP) Pulse Ox O2 Delivery O2 Flow Rate FiO2 02/09/18 08:00 97.8 75 18 97/53 (68) 97 02/09/18 00:00 98.0 89 17 111/62 (78) 94 02/08/18 20:00 98.5 86 17 121/65 (83) 97 02/08/18 16:00 99.0 98 18 126/77 (93) 95 02/08/18 12:00 98.5 90 18 125/62 (83) 97 I/O 02/08/18 02/08/18 02/08/18 02/09/18 02/09/18 02/09/18 07:00 15:00 23:00 07:00 15:00 23:00 Intake Total 1650 ml 1960 ml 240 ml Output Total 500 ml 750 ml 600 ml Balance 1150 ml 1210 ml -360 ml Intake Oral 650 ml 960 ml 240 ml IV Total 1000 ml 1000 ml Output Urine Total 500 ml 750 ml 600 ml # Bowel Movements 2 2 2 Result Diagram: 02/09/18 0320 02/09/18 0326 Imaging Last Impressions Abdomen X-Ray 02/07/18 0800 Signed Impressions: Service Date/Time: Wednesday, February 07, 2018 10:40 - CONCLUSION: Persistent abnormal dilated small bowel loops. Ton Marin MD Abdomen/Pelvis CT 02/05/18 1416 Signed Impressions: Service Date/Time: Monday, February 05, 2018 15:28 - CONCLUSION: Markedly distended stomach and small bowel filled with mostly fluid. Status post left hemicolectomy. Uncertain how much colon is left. No definite evidence of bowel obstruction. Solid organs are unremarkable. Nj Ortiz MD Objective Remarks GEN: WDWN adult white male sitting up in bed, NAD. Skin: Cool and dry CV: NRRR, normal S1/S2, no MRG Lungs: CTAB, no crackles or wheezes Abd: Soft, NDNT. Bowel sounds active and normal. MSK: Trace edema to BLE. Neuro: Awake, alert. Moves all extremities without difficulty. Normal speech. Medications and IVs Current Medications Medications (Trade) Dose Ordered Sig/Bruno Route Start Time Stop Time Status Last Admin (NS Flush) 2 ml UNSCH PRN IV FLUSH 02/05/18 18:15 (NS Flush) 2 ml BID IV FLUSH 02/05/18 21:00 02/06/18 09:00 (Zofran Inj) 4 mg Q6H PRN IVP 02/05/18 18:15 02/06/18 05:45 (Lovenox Inj) 40 mg Q24H SQ 02/05/18 21:00 02/08/18 21:12 (Narcan Inj) 0.4 mg UNSCH PRN IV PUSH 02/05/18 18:15 (Toradol Inj) 30 mg Q6HR IV PUSH 02/06/18 00:00 02/10/18 00:00 02/09/18 05:14 Patient Own Medication PT OWN MED: ENBREL (ETANERCE... Q7D SQ 02/06/18 07:30 Future hold (Tears Naturale Opth Soln) 1 drop QID PRN EACH EYE 02/06/18 13:30 02/09/18 03:31 (Symbicort 160-4.5 Mcg Inh) 1 puff Q12HR INH 02/07/18 21:00 02/09/18 09:01 (Flexeril) 10 mg TID PO 02/07/18 18:00 02/09/18 08:54 (Pepcid) 20 mg HS PO 02/07/18 21:00 02/08/18 21:12 (Paxil) 20 mg DAILY PO 02/08/18 09:00 02/09/18 08:55 (Ambien) 10 mg HS PRN PO 02/07/18 15:45 02/08/18 21:21 Patient Own Medication PT OWN MED: RILU... BID PO 02/08/18 15:30 02/09/18 08:58 A/P Assessment and Plan Patient is a 72-year-old male with past medical history of ALS, UC and prior SBOs (medically managed) presenting with: Problem List: (1) Abdominal pain ICD Codes: R10.9 - Unspecified abdominal pain Status: Resolved Plan: Secondary to SBO. Improving clinically. Patient to be managed medically at the moment for SBO Surgery consulted, appreciate recs -Advance diet as tolerated; can be discharged if tolerating regular diet this evening Toradol IV PRN for pain (2) Small bowel obstruction ICD Codes: K56.609 - Unspecified intestinal obstruction, unspecified as to partial versus complete obstruction Status: Acute Plan: See plan above (3) ALS (amyotrophic lateral sclerosis) ICD Codes: G12.21 - Amyotrophic lateral sclerosis Status: Chronic Plan: Continue with home medications (4) COLD (chronic obstructive lung disease) ICD Codes: J44.9 - Chronic obstructive pulmonary disease, unspecified Plan: Reports history of asthma on Advair -Advair or symbicort BID (depending on formulary in hospital) (5) Nutrition, metabolism, and development symptoms ICD Codes: R63.8 - Other symptoms and signs concerning food and fluid intake Plan: Fluids: PO only Electrolytes: Replete as needed continue to monitor Nutrition: Soft diet, advance as tolerated DVT prophylaxis: Lovenox every 24hr Sleep: Patrick Blankenship MD R2 February 09, 2018 11:20 am
[2018-02-09 12:00] VITALS: BP 114/64; PULSE 89; RESP 16; TEMP 97.7; O2SAT 97
[2018-02-09 16:00] VITALS: BP 107/59; PULSE 93; RESP 16; TEMP 97.3; O2SAT 96
--- NOTE | 2018-02-09 19:41 | HHI.DCPOC ---
Discharge Care Plan Diagnosis: (1) Small bowel obstruction (2) ALS (amyotrophic lateral sclerosis) Goals to Promote Your Health * To prevent worsening of your condition and complications * To maintain your health at the optimal level Directions to Meet Your Goals Take your medications as prescribed Follow your dietary instruction Follow activity as directed Keep your appointments as scheduled Take your immunizations and boosters as scheduled If your symptoms worsen call your PCP, if no PCP go to Urgent Care Center or Emergency Room Smoking is Dangerous to Your Health. Avoid second hand smoke Call the 24-hour hour crisis hotline for domestic abuse at Patrick Davidson MD R2 February 09, 2018 7:41 pm
--- NOTE | 2018-02-10 06:13 | HHI.DS ---
Discharge Summary Admission Date Feb 05, 2018 at 17:16 Admitting Diagnosis ileus, abd pain (1) Abdominal pain Plan: Secondary to SBO. Improving clinically. Patient to be managed medically at the moment for SBO Surgery consulted, appreciate recs -Advance diet as tolerated; can be discharged if tolerating regular diet this evening Toradol IV PRN for pain ICD Codes: R10.9 - Unspecified abdominal pain Status: Resolved (2) Small bowel obstruction Plan: See plan above ICD Codes: K56.609 - Unspecified intestinal obstruction, unspecified as to partial versus complete obstruction Status: Acute (3) ALS (amyotrophic lateral sclerosis) Plan: Continue with home medications ICD Codes: G12.21 - Amyotrophic lateral sclerosis Status: Chronic (4) COLD (chronic obstructive lung disease) Plan: Reports history of asthma on Advair -Advair or symbicort BID (depending on formulary in hospital) ICD Codes: J44.9 - Chronic obstructive pulmonary disease, unspecified (5) Nutrition, metabolism, and development symptoms Plan: Fluids: PO only Electrolytes: Replete as needed continue to monitor Nutrition: Soft diet, advance as tolerated DVT prophylaxis: Lovenox every 24hr Sleep: Ambien ICD Codes: R63.8 - Other symptoms and signs concerning food and fluid intake Brief History Patient is a 72-year-old male with past medical history of ALS, UC and prior SBOs (medically managed). He presented to the emergency room today with complaints of diffuse abdominal pain and lower back pain. Abdominal pain began last night accompanied by nausea and vomiting. Patient stated he has vomited more than 10 times, emesis is brownish/green fluid. No blood noted in the emesis. Denies fever, chills, chest pain or shortness of breath. Patient said he had bowel movement yesterday no blood noted to be in the stool. He has not been able to tolerate any p.o. intake today. CBC/BMP: 02/09/18 0320 02/09/18 0326 Significant Findings Laboratory Tests Test 02/08/18 07:38 02/09/18 03:20 02/09/18 03:26 Blood Urea Nitrogen 25 MG/DL (7-18) Estimat Glomerular Filtration Rate 86 ML/MIN (>89) 78 ML/MIN (>89) Red Blood Count 4.42 MIL/MM3 (4.50-5.90) Hemoglobin 10.2 GM/DL (13.0-17.0) Hematocrit 32.9 % (39.0-51.0) Mean Corpuscular Volume 74.4 FL (80.0-100.0) Mean Corpuscular Hemoglobin 23.1 PG (27.0-34.0) Mean Corpuscular Hemoglobin Concent 31.1 % (32.0-36.0) Platelet Count 456 TH/MM3 (150-450) Chloride Level 110 MEQ/L (98-107) PE at Discharge GEN: WDWN adult white male sitting up in bed, NAD. Skin: Cool and dry CV: NRRR, normal S1/S2, no MRG Lungs: CTAB, no crackles or wheezes Abd: Soft, NDNT. Bowel sounds active and normal. MSK: Trace edema to BLE. Neuro: Awake, alert. Moves all extremities without difficulty. Normal speech. Pt Condition on Discharge: Good Discharge Disposition: Discharge Home Discharge Instructions DIET: Follow Instructions for: As Tolerated, No Restrictions Additional Diet Instructions: For the next few days, prioritize softer and bland foods (banana, rice, applesauce, toast, etc). Add heavier foods as tolerated. Activities you can perform: Regular-No Restrictions Alise Ceballos MD, R1 February 10, 2018 06:13
== END 2018-02-09 20:46 | disposition home or self-care (01) | DRG 389 ==
LOC: NEPC 13:38 → NEDA 17:16 → N07B 19:35
PROVIDERS: ADMIT Family Medicine; ATTEND Family Medicine
DX: K56.50 Intestinal adhesions [bands], unspecified as to partial versus complete obstruction (principal); G12.21 Amyotrophic lateral sclerosis; I10 Essential (primary) hypertension; D72.829 Elevated white blood cell count, unspecified; L40.50 Arthropathic psoriasis, unspecified; R00.0 Tachycardia, unspecified; G47.00 Insomnia, unspecified; J44.9 Chronic obstructive pulmonary disease, unspecified; F32.9 Major depressive disorder, single episode, unspecified; Z87.891 Personal history of nicotine dependence; Z90.49 Acquired absence of other specified parts of digestive tract; Z96.641 Presence of right artificial hip joint; Z99.3 Dependence on wheelchair
CPT/HCPCS: 43753; 74019; 74177; 80048; 80053; 81001; 83605; 83690; 85007; 85025; 85027; 85610; 85730; 96374; 96375; J1650; J1885; J2270; J2405; J3480; J7030; Q9967